=== PATIENT | female | born 1960 | race Caucasian/White ===

== ENCOUNTER 2020-11-16 17:26 | Emergency (ER) | payer MEDICAID ==
[~2020-11-16] VITALS: Ht 147.3 cm; Wt 101.2 kg
[2020-11-16 17:37] VITALS: BP 172/101
--- NOTE | 2020-11-16 20:35 | NUR ---
[facility] ASSESSING PATIENT IN [facility].
[2020-11-16] MEDS ORDERED: ACYC400T14 PO (20:48)
[2020-11-16] MEDS ORDERED: PRED20TA5 PO (20:48)
[2020-11-16] MEDS ORDERED: FLAX1CAP PO (20:48)
[2020-11-16] MEDS ORDERED: LISI5TAB18 PO (21:50)
[2020-11-16] MEDS ORDERED: lisinopril (21:50)
[2020-11-16 21:53] VITALS: BP 158/82
--- NOTE | 2020-11-16 21:53 | NUR ---
Patient discharged with v/s stable. Written and verbal after care instructions given and explained. Patient alert, oriented and verbalized understanding of instructions. Ambulatory with steady gait. All questions addressed prior to discharge. ID band removed. Patient advised to follow up with PMD. Rx of LISINOPRIL, ACYCLOVIR, PREDNISONE, TEARS AGIAN HYDRATE SOFTGEL given. Patient educated on indication of medication including possible reaction and side effects. Opportunity to ask questions provided and answered.
== END 2020-11-16 21:53 | disposition home or self-care (01) ==
LOC: MED 17:26
DX: G51.0 Bell's palsy (principal); R03.0 Elevated blood-pressure reading, without diagnosis of hypertension; Z79.899 Other long term (current) drug therapy
CPT/HCPCS: 99283